=== PATIENT | male | born 1995 | race Caucasian/White ===

== ENCOUNTER 2017-03-17 00:50 | Emergency (ER) | payer OTHER ==
[~2017-03-17] VITALS: Ht 170.2 cm; Wt 95.3 kg
[~2017-03-17 00:50] MED LIST: ONDA8TAB13 SL
[2017-03-17 00:59] VITALS: TEMP 37.1; Ht 170.2 cm; Wt 95.3 kg
[2017-03-17] MEDS ORDERED: ONDANSETRON INJ 2 MG/ML 2 ML VIAL IV STA (01:11)
[2017-03-17] MEDS ORDERED: SODIUM CHLORIDE 0.9% 1000ML 1,000 ML IV ONE ×2 (01:15)
[2017-03-17] MEDS ORDERED: ACET-1256 PO (01:19)
[2017-03-17] MEDS ORDERED: CALC500C3 PO (01:19)
[2017-03-17 01:47] LABS: BASO % 0.1 %; BASO ABS # 0.01 K/uL (0-0.2); COMPLETE YES; HEMATOCRIT 50.7 % (42-52); IG% 0.3 %; LYMPH % 7.1 %; LYMPH ABS # 1.34 K/uL (1.2-3.4); MEAN CELL VOLUME 90.5 fL (80-100); MEAN CORPUSCULAR HEMOGLOBIN 32.3 pg (25-34); MEAN CORPUSCULAR HGB CONC 35.7 g/dl (32-36); MEAN PLATELET VOLUME 11.3 fL (7.4-10.4); MONO % 11.6 %; NEUT % 80.9 %; PLATELET COUNT 282 K/uL (130-400); WHITE BLOOD COUNT 18.92 K/uL (4.8-10.8)
[2017-03-17 01:58] LABS: URINE APPEARANCE CLEAR (CLEAR); URINE BILIRUBIN NEG (NEG); URINE COLOR DK YELLOW; URINE NITRITE NEG (NEG); URINE SPECIFIC GRAVITY 1.029 (1.000-1.030); UROBILINOGEN NEG (NEG); ZZUR CULT IF INDIC CLEAN CATCH NO
[2017-03-17 02:05] LABS: BUN/CREATININE RATIO 15.6 (10-20); CALCIUM 9.8 mg/dl (8.5-10.1); CREATININE 1.2 mg/dl (0.60-1.40); POTASSIUM 3.2 mmol/L (3.5-5.1)
[2017-03-17 02:08] LABS: ALB/GLOB RATIO 1.3 (0.9-2)
[2017-03-17 02:12] LABS: MANUAL MICROSCOPIC REQUIRED? NO; REVIEW REQ? NO
[2017-03-17 02:14] LABS: BENZODIAZEPINE, URINE NEG (NEG); COCAINE,URINE NEG (NEG); PHENCYCLIDINE, URINE NEG (NEG)
[2017-03-17] MEDS ORDERED: PROCHLORPERAZINE 5 MG/ML 2 ML VIAL IV STA (02:28)
[2017-03-17] MEDS ORDERED: DiphenhydrAMINE HCL 50 MG/ML VIAL IV STA (02:28)
[2017-03-17 04:45] VITALS: BP 108/88; PULSE 104; O2SAT 97
[2017-03-17] MEDS ORDERED: ONDANSETRON HOME PACK 4MG OD TAB PO ONE (05:15)
--- NOTE | 2017-03-17 05:34 | EMERGENCY ROOM VISIT NOTE ---
History First contact with patient: 01:04 Chief Complaint: VOMITING Stated Complaint: SEVERE VOMITING,STOMACH PAINS History of Present Illness The patient is a 21 year old male who presents to the Emergency Room with complaints of nausea, vomiting, and abdominal pain for roughly the past 24 hours. The patient states that he was drinking Wednesday throughout the day from around noon until 6 or 7 PM. The patient states that he took a nap, and woke up Wednesday at 1 AM. He then had several episodes of vomiting. He has not been able to tolerate food or fluids throughout the day. The patient has had several episodes like this in the past. He feels dehydrated, prompting his presentation to the department. He is without fever or chills. No chest pain or shortness of breath. He does have abdominal cramping and rates his discomfort a 7/10. Review of Systems More than 10 systems were reviewed and otherwise negative with the exception of history of present illness. Past Medical/Surgical History Medical Problems: (1) Dehydration (2) History of seizure Surgical Problems: (1) H/O wisdom tooth extraction (2) History of appendectomy Family History Patient reports no known family medical history. Social History Smoking Status: Never Smoker Alcohol Use: occasionally Drug Use: marijuana, other Marital Status: single Housing Status: lives with roommate Occupation Status: [employer] student Current/Historical Medications Scheduled PRN Acetaminophen (Tylenol), 1,000 MG PO DIRECTED PRN for Pain Calcium Carbonate (Tums), 1-2 TABS PO DIRECTED PRN for Indigestion Allergies Coded Allergies: Amoxicillin (Verified Allergy, Intermediate, RASH, 03/17/17) Cephalosporins (Verified Allergy, Intermediate, HIVES, 03/17/17) Physical Exam Vital Signs Date Time Temp Pulse Resp B/P Pulse Ox O2 Delivery O2 Flow Rate FiO2 03/17/17 04:45 104 16 108/88 97 Room Air 03/17/17 02:44 64 18 134/104 93 Room Air 03/17/17 00:59 37.1 91 20 137/93 96 Room Air Physical Exam VITALS: Vitals are noted on the nurse's note and reviewed by myself. Vital signs stable. GENERAL: Well-developed, well-nourished, white male, who is in no acute distress and resting comfortably. Patient is cooperative with the examination. HEAD: Normocephalic atraumatic. MOUTH: Mucous membranes moist. Tonsils are not enlarged. Pharynx without erythema, blood, or exudate. Uvula midline. Airway patent. NECK: Supple without nuchal rigidity. No lymphadenopathy. No thyromegaly. Cervical spine is nontender. HEART: Regular rate and rhythm without murmurs gallops or rubs. LUNGS: Clear to auscultation bilaterally without wheezes, rales or rhonchi. No retractions or accessory muscle use. ABDOMEN: Positive normal bowel sounds x 4. Soft, nontender, without masses or organomegaly. No guarding or rebound tenderness. MUSCULOSKELETAL: No muscle atrophy, erythema, or edema noted. Full range of motion without joint tenderness in all extremities. Medical Decision & Procedures Laboratory Results 03/17/17 01:35 Red Blood Count 5.60, Mean Corpuscular Volume 90.5, Mean Corpuscular Hemoglobin 32.3, Mean Corpuscular Hemoglobin Concent 35.7, Mean Platelet Volume 11.3, Neutrophils (%) (Auto) 80.9, Lymphocytes (%) (Auto) 7.1, Monocytes (%) (Auto) 11.6, Eosinophils (%) (Auto) 0.0, Basophils (%) (Auto) 0.1, Neutrophils # (Auto ) 15.31, Lymphocytes # (Auto) 1.34, Monocytes # (Auto) 2.20, Eosinophils # (Auto ) 0.00, Basophils # (Auto) 0.01 03/17/17 01:35 Test 03/17/17 01:05 03/17/17 01:35 Urine Color DK YELLOW Urine Appearance CLEAR (CLEAR) Urine pH 7.0 (4.5-7.5) Urine Specific [place] 1.029 (1.000-1.030) Urine Protein 1+ (NEG) Urine Glucose (UA) NEG (NEG) Urine Ketones 3+ (NEG) Urine Occult Blood NEG (NEG) Urine Nitrite NEG (NEG) Urine Bilirubin NEG (NEG) Urine Urobilinogen NEG (NEG) Urine Leukocyte Esterase NEG (NEG) Urine WBC (Auto) 1-5 /hpf (0-5) Urine RBC (Auto) 0-4 /hpf (0-4) Urine Hyaline Casts (Auto) 1-5 /lpf (0-5) Urine Epithelial Cells (Auto) 10-20 /lpf (0-5) Urine Bacteria (Auto) NEG (NEG) Urine Opiates Screen NEG (NEG) Urine Methadone, Qualitative NEG (NEG) Urine Barbiturates NEG (NEG) Urine Phencyclidine (PCP) Level NEG (NEG) Ur Amphetamine/Methamphetamine NEG (NEG) MDMA (Ecstasy) Screen NEG (NEG) Urine Benzodiazepines Screen NEG (NEG) Urine Cocaine Metabolite NEG (NEG) Urine Marijuana (THC) POS (NEG) White Blood Count 18.92 K/uL (4.8-10.8) Red Blood Count 5.60 M/uL (4.7-6.1) Hemoglobin 18.1 g/dL (14.0-18.0) Hematocrit 50.7 % (42-52) Mean Corpuscular Volume 90.5 fL (80-100) Mean Corpuscular Hemoglobin 32.3 pg (25-34) Mean Corpuscular Hemoglobin Concent 35.7 g/dl (32-36) Platelet Count 282 K/uL (130-400) Mean Platelet Volume 11.3 fL (7.4-10.4) Neutrophils (%) (Auto) 80.9 % Lymphocytes (%) (Auto) 7.1 % Monocytes (%) (Auto) 11.6 % Eosinophils (%) (Auto) 0.0 % Basophils (%) (Auto) 0.1 % Neutrophils # (Auto) 15.31 K/uL (1.4-6.5) Lymphocytes # (Auto) 1.34 K/uL (1.2-3.4) Monocytes # (Auto) 2.20 K/uL (0.11-0.59) Eosinophils # (Auto) 0.00 K/uL (0-0.5) Basophils # (Auto) 0.01 K/uL (0-0.2) RDW Standard Deviation 42.4 fL (36.4-46.3) RDW Coefficient of Variation 12.7 % (11.5-14.5) Immature Granulocyte % (Auto) 0.3 % Immature Granulocyte # (Auto) 0.06 K/uL (0.00-0.02) Anion Gap 11.0 mmol/L (3-11) Est Creatinine Clear Calc Drug Dose 106.2 ml/min Estimated GFR () 98.9 Estimated GFR (Non- 85.3 BUN/Creatinine Ratio 15.6 (10-20) Calcium Level 9.8 mg/dl (8.5-10.1) Magnesium Level 2.0 mg/dl (1.8-2.4) Total Bilirubin 0.7 mg/dl (0.2-1) Aspartate Amino Transf (AST/SGOT) 21 U/L (15-37) Alanine Aminotransferase (ALT/SGPT) 30 U/L (12-78) Alkaline Phosphatase 80 U/L (45-117) Total Protein 7.9 gm/dl (6.4-8.2) Albumin 4.4 gm/dl (3.4-5.0) Globulin 3.5 gm/dl (2.5-4.0) Albumin/Globulin Ratio 1.3 (0.9-2) Lipase 135 U/L (73-393) Medications Administered Medications (Trade) Dose Ordered Sig/Dia Route Start Time Stop Time Status Last Admin Dose Admin Sodium Chloride 1,000 ml @ 999 mls/hr Q1H1M ONCE IV 03/17/17 01:15 03/17/17 02:15 DC 03/17/17 01:40 999 MLS/HR Sodium Chloride (Nss 1000ml) 1,000 ml @ 999 mls/hr Q1H1M ONCE IV 03/17/17 01:15 03/17/17 02:15 DC 03/17/17 01:40 999 MLS/HR Ondansetron HCl (Zofran Inj) 4 mg NOW STAT IV 03/17/17 01:11 03/17/17 01:14 DC 03/17/17 01:35 4 MG Diphenhydramine HCl (Benadryl Inj) 50 mg NOW STAT IV 03/17/17 02:28 03/17/17 02:29 DC 03/17/17 02:43 50 MG Prochlorperazine Edisylate (Compazine Inj) 10 mg NOW STAT IV 03/17/17 02:28 03/17/17 02:29 DC 03/17/17 02:43 10 MG Ondansetron HCl (ZOFRAN ODT 4MG Home Pack) 1 homepack UD ONCE PO 03/17/17 05:15 03/17/17 05:16 DC 03/17/17 05:16 1 HOMEPACK ED Course Physical exam and history were performed. Nursing notes and EMR were reviewed. Patient appears to have nausea and vomiting for sexually the past one day. The patient does not appear toxic on examination. IV access was established and labs were obtained. The patient was hydrated with 2 L normal saline and given formula grams IV Zofran. The patient's blood work is as above and was reviewed. He does have an elevated white blood cell count, which is felt to be from the vomiting episodes. He does not have a significant anemia or gross electrolyte imbalance. Lipase and transaminases are nondiagnostic. His urine is positive for marijuana, and it has been positive in the past for the same. This was well documented on a previous admission to the facility for intractable vomiting. X-ray was obtained and does not show obvious acute findings. The patient continued to have discomfort and symptoms, and was treated with 50 mg IV Benadryl and 10 mg IV Compazine. Following this he was able to rest comfortably without persistent symptoms. Overall the patient appears stable for discharge home. I suspect his symptoms are related to both alcohol use as well as cyclic vomiting syndrome. The patient will be given a home pack of Zofran to use throughout the next day. He is to remain well hydrated and follow-up with [facility] or his primary care physician. He was counseled on stopping marijuana and avoiding alcohol. The patient was not interested in rehabilitation services. The chart was completed utilizing [email or web address] Speech Voice Recognition Software. Grammatical errors, random word insertions, pronoun errors, and incomplete sentences are an occasional consequence of this system due to software limitations, ambient noise, and hardware issues. Any formal questions or concerns about the content, text, or information contained within the body of this dictation should be directly addressed to the provider for clarification. . Medical Decision Differential diagnosis: Etiologies such as gastroenteritis, food borne illness, infections, appendicitis , diverticulitis, inflammatory bowel disease, obstruction, GI bleed, biliary pathology, as well as others were entertained. Impression Primary Impression: Cyclic vomiting syndrome Additional Impression: Marijuana use Departure Information Dispostion Home / Self-Care Condition GOOD Forms HOME CARE DOCUMENTATION FORM, IMPORTANT VISIT INFORMATION Patient Instructions My [facility] Additional Instructions You were seen and evaluated today on an emergency basis only. This is not a substitute for, or an effort to provide, complete comprehensive medical care. It is not possible to recognize and treat all injuries or illnesses in a single emergency department visit. For this reason it is recommended that you followup with [facility] or your primary care physician this week for ongoing care and evaluation. Drink clear fluids and remain well hydrated. Avoid alcohol, caffeine, nicotine, and marijuana as these can exacerbate your symptoms. Zofran 1 tablet (homepack) every 6 hrs as needed for nausea. You are welcome to return to the emergency department anytime with new, worsening, or concerning symptoms. Problem Qualifiers
--- NOTE | 2017-03-17 08:30 | DIAGNOSTIC IMAGING REPORT ---
CHEST AND ABDOMEN 2 VIEWS HISTORY: Nausea. Vomiting. Epigastric pain. COMPARISON: Abdomen and pelvis CT 08/14/2016. FINDINGS: The lungs are clear. The cardiomediastinal silhouette is within normal limits. There is no pneumoperitoneum or pneumatosis. The bowel gas pattern is unremarkable. No evidence for bowel obstruction. No pathologic calcifications. Small focus of suture material within the right lower quadrant consistent with prior appendectomy. IMPRESSION: No acute cardiopulmonary process. No evidence for bowel obstruction. Electronically signed by: Mick Lyon M.D. 03/17/2017 8:29 AM Dictated Date/Time: 03/17/2017 8:27 AM
== END 2017-03-17 05:10 | disposition home or self-care (01) ==
LOC: C.EDB 00:52 → C.EDA 05:10
DX: G43.A0 Cyclical vomiting, in migraine, not intractable (principal); F12.10 Cannabis abuse, uncomplicated